=== PATIENT | male | born 1955 | race Two or more races ===

== ENCOUNTER 2025-01-14 14:15 | Day surgery (SDC) | payer MEDICARE, SELFPAY ==
--- NOTE | 2025-01-11 11:07 | EKG_ITS ---
[facility] Test Date: 2025-01-11 Pat Name: YADIRA REED Department: Room: - Gender: Male Physician Gynecologist: DOMINGO : 1955 Requested By: Leoncio Lopez Order Number: [id number] Reading MD: Leoncio Lopez Measurements Intervals [place] Rate: 54 P: -74 GA: 179 QRS: -66 QRSD: 126 T: 63 QT: 446 QTc: 425 Interpretive Statements ECTOPIC ATRIAL BRADYCARDIA LEFT ANTERIOR FASCICULAR BLOCK [QRS AXIS <= -45, QR IN I, RS IN II] MINIMAL VOLTAGE CRITERIA FOR LVH, CONSIDER NORMAL VARIANT [MEETS CRITERIA IN ONE OF: R(aVL), S(V1), R(V5), R(V5/V6)+S(V1)] NONSPECIFIC T-WAVE ABNORMALITY No previous ECG available for comparison /store/[email or web address]/[id number].pdf
[2025-01-11 12:29] LABS: INR 1.0 (0.9-1.3); Partial Thromboplastin Time 28.4 Seconds (22.0-36.0); Prothrombin Time 11.0 Seconds (9.0-12.2)
[2025-01-11 12:35] LABS: Alanine Aminotransferase 12 U/L (10-49); Albumin, Serum 4.2 gm/dL (3.4-4.8); Albumin/Globulin Ratio 1.6 (1.2-2.2); Alkaline Phosphatase 73 U/L (46-116); Anion Gap 12 (7-16); Aspartate Amino Transferase 18 U/L (0-34); BUN/Creatinine Ratio 11 Ratio (12-20); Bilirubin,Total 0.6 mg/dL (0.3-1.2); Blood Urea Nitrogen 14 mg/dL (9-23); Calcium 9.0 mg/dL (8.3-10.6); Calcium (Corrected) 9.0 mg/dL (8.5-10.1); Carbon Dioxide 26.6 mMol/L (20.0-31.0); Chloride 107 mMol/L (98-107); Creatinine (Component) 1.3 mg/dL (0.6-1.3); Globulin 2.6 gm/dL (2.3-3.5); Glucose 115 mg/dL (74-106); Osmolality,Calculated 292 (275-295); Potassium 4.0 mMol/L (3.4-5.1); Sodium 146 mMol/L (136-145); Total Protein 6.8 gm/dL (5.7-8.2); eGFR 59 See Note
[2025-01-14] VITALS (7 sets, daily range): BP systolic 107–131; BP diastolic 69–83; PULSE 61–69; RESP 15–20; TEMP 36.4–36.7; O2SAT 93–95; BMI 35.6
[2025-01-14] MEDS: RINGERS LACTATED 1000 ML 1,000 ML 20 ML IV (15:57)
== END 2025-01-14 17:30 | disposition home or self-care (01) ==
PROVIDERS: PCP Physician Assistant; Referring Provider Specialist; Visit Provider Specialist
PROC: 0DBE8ZX Excision of Large Intestine, Via Natural or Artificial Opening Endoscopic, Diagnostic (ICD-10-PCS; CPT 45380; principal; 2025-01-14 13:45)
PROC: (CPT 43239; 2025-01-14 13:45)
DX: D12.3 Benign neoplasm of transverse colon (principal); Z01.810 Encounter for preprocedural cardiovascular examination; K64.2 Third degree hemorrhoids; K57.31 Diverticulosis of large intestine without perforation or abscess with bleeding; K74.60 Unspecified cirrhosis of liver; Z13.810 Encounter for screening for upper gastrointestinal disorder; K29.61 Other gastritis with bleeding
CPT/HCPCS: 45385; 46221; 43235; 36415; 80053; 85610; 85730; 93005; A4649; J7120